=== PATIENT | female | born 1965 | race Caucasian/White ===

== ENCOUNTER 2022-03-23 12:16 | Outpatient (CLI) | payer BC, SELFPAY ==
[2022-03-23 14:36] LABS: Hepatitis B Surface Antigen Negative (Negative)
[2022-03-23 14:42] LABS: HAV RESULT Negative (Negative); Hepatitis B Core IgM Result Negative (Negative)
[2022-03-23 14:53] LABS: Hepatitis C Virus Antibody Negative (Negative)
[2022-03-28 04:47] LABS: Ceruloplasmin 29 mg/dL (18-53)
[2022-03-29 19:49] LABS: Mitochondrial (M2) Ab (IgG) <=20.0 U (<=20.0)
== END 2022-03-23 12:17 | disposition home or self-care (01) ==
PROVIDERS: PCP Family Medicine; Visit Provider Internal Medicine Gastroenterology
DX: R79.89 Other specified abnormal findings of blood chemistry (principal)
CPT/HCPCS: 36415; 80074; 82390; 82728; 83520